=== PATIENT | female | born 1985 | race Caucasian/White ===

== ENCOUNTER 2017-01-14 22:22 | Emergency (ER) | payer MEDICAID ==
[~2017-01-14 22:22] MED LIST: ADVAIR 1001 DISK W/D IH; ADVAIR 25028 BLISTE1 PO; ADVIL200 MG PO; ALBUTEROL INH 0.3 ML AERO NEB; ALBUTEROL SULF8.5 G1 IH; ALBUTEROL SULF8.5 GM; ALBUTEROL SULF8.5 GM IH; ALBUTEROL0.83 MG/ML INH; ALBUTEROL17 GM INH; ALBUTEROL2.5 MG/0.1 IH; ALDACTONE25 M1 PO; ALEVE220 M1 PO; ALEVE220 M2 PO; AMBIEN; AMBIEN10 M1 PO; AMBIEN10 MG PO; AMBIEN5 M1 PO; AMBIEN5 MG; ANEXSIA 7.5/3251 TAB; ANTI-DIARRHEAL2 M1 PO; ATARAX25 MG PO; ATIVAN1 M2 PO; BACTRIM DS TAB1 EAC2 PO; BACTRIM DS TABL1 TAB; BACTRIM DS TABL1 TAB PO; BACTRIM DS1 TA1 PO; BACTRIM DS1 TAB PO; BENTYL20 MG PO; BIAXIN250 M3 PO; BLOOD PRESSURE MED; CARVEDILOL3.125 M1 PO; CEFDINIR300 MG PO; CEPACOL SORE T1 EACH MM; CLEOCIN HCL150 MG PO; CLEOCIN HCL300 MG PO; CLINDAMYCIN HC300 M2 PO; CLINDAMYCIN HC300 MG PO; COMBIVENT RESPIM4 G1 INH; COMPAZINE10 M PO; COREG3.125 M1 PO; CORTISPORIN EAR10 M LEFT EAR; CYCLOBENZAPRINE10 M1 PO; DORYX100 MG PO; DULCOLAX10 MG/SUPP RC; DULCOLAX5 MG PO; EFFEXOR100 MG; EFFEXOR75 MG; ERY-TAB250 MG PO; EXCEDRIN CAPLET1 TAB PO; FLAGYL500 MG PO; FLEXERIL 10MG PO; FLEXERIL10 MG PO; FLOMAX0.4 MG PO; FLUOXETINE HCL40 MG PO; FUROSEMIDE40 M2 PO; GABAPENTIN300 M1 PO; GLUCOPHAGE1000 M1 PO; H PO; HYDROCHLOROTHIA25 MG PO; HYDROCODON-ACE1 EAC7 PO; HYDROCODONE; IBUPROFEN800 MG PO; IPRAT-ALBUT 0.5-3 ML IH; IRON1 TA1 PO; KEFLEX500 MG; KEFLEX500 MG PO; LASIX20 M1 PO; LASIX40 M1 PO; LASIX80 M1 PO; LEVAQUIN750 M1 PO; LINDANE60 ML; LINDANE60 ML TP; LISINOPRIL10 MG PO; LISINOPRIL5 M1 PO; LORTAB 5/500 TA1 TAB PO; LORTAB 7.5/5001 EA PO; LORTAB 7.5/5001 TAB PO; LYRICA50 MG/CAP PO; MIRALAX17 G2 PO; MOTRIN200 MG/TA1 PO; MOTRIN600 MG PO; MUCINEX600 MG PO; NABUMETONE750 MG; NAPROSYN250 MG PO; NAPROXEN500 MG PO; NEURONTIN300 M1 PO; NEURONTIN600 M1 PO; NEXIUM20 M1 PO; NO MEDICATIONS; NO MEDS CURRENTLY; NORCO 5-325 TA1 EACH PO; NORCO 5/325 TAB1 TAB; NORCO 5/325 TAB1 TAB PO; NORCO 5/3251 TAB PO; OXYCODONE/APAP PO; PAXIL20 MG; PAXIL40 MG; PERCOCET 5-3251 EACH PO; PERCOCET 5/3251 TAB PO; PERCOCET 5MG/AP1 TA1 PO; PERCOCET 7.5/321 TA1 PO; PHENERGAN VC W120 ML; PHENERGAN VC W120 ML PO; PHENERGAN W/CO120 ML PO; PHENERGAN25 M1 PO; POTABA500 M1 PO; POTASSIUM PO; PREDNISONE10 MG PO; PREDNISONE20 M1 PO; PREDNISONE20 MG; PREDNISONE20 MG PO; PRENATAL1 EACH PO; PRILOSEC OTC20 MG PO; PRILOSEC40 MG; PROAIR HFA8.5 GM IH; PROCHLORPERAZINE5 MG PO; PROMETHAZINE V240 ML PO; PROMETHAZINE-C120 ML PO; PROMETRIUM200 MG; PROVENTIL HFA6.7 G1 IH; PROVENTIL HFA6.7 G1 INH; PROVENTIL0.83 MG/ML IH; PROVENTIL17 GM; PROVENTIL17 GM IH; PROZAC40 M1 PO; PROZAC40 MG PO; PYRIDIUM200 MG PO; ROBITUSSIN DM118 ML PO; ROBITUSSIN PED PO; ROBITUSSIN-DM120 ML; ROBITUSSIN-DM120 ML PO; ROBITUSSIN100 MG/5 M PO; ROBITUSSIN15 MG/5 M1 PO; SINGULAIR10 MG PO; SPIRIVA18 MCG IH; SPRINTEC1 TAB PO; SUBOXONE 8 MG-1 EAC2 SL; SURFAK240 M1 PO; TESSALON PERLE100 M1 PO; TESSALON PERLE100 MG PO; TRAMADOL HCL50 MG PO; TYLENOL W/CODEI1 TAB PO; TYLENOL325 MG PO; ULTRAM50 M1 PO; ULTRAM50 MG PO; URINARY PAIN RE95 MG; VENTOLIN HFA18 G1 IH; VIBRAMYCIN100 MG PO; VICODIN 5/500 T1 TAB PO; WELLBUTRIN SR150 MG; XANAX; XANAX0.25 MG; XANAX0.5 M1 PO; XANAX0.5 MG PO; XANAX1 M1 PO; XANAX1 MG; XANAX1 MG PO; ZITHROMAX; ZITHROMAX250 M1 PO; ZITHROMAX250MG Z-PAK; ZITHROMAX250MG Z-PAK PO; ZOFRAN ODT4 MG/UDTAB PO; ZOFRAN4 MG PO; [UNRECOGNIZED DRUG - MIXTURE] PO
[2017-01-14 22:38] LABS: URINE BILIRUBIN SMALL (NEG); URINE BLOOD MODERATE (NEG); URINE GLUCOSE (UA) NEGATIVE (NEG); URINE KETONE SMALL (NEG); URINE LEUKOCYTE ESTERASE POSITIVE (NEG); URINE NITRITE NEGATIVE (NEG); URINE PROTEIN LARGE (NEG); URINE SPECIFIC GRAVITY 1.025 (1.003-1.030)
[2017-01-14 22:39] LABS: URINE APPEARANCE HAZY; URINE COLOR YELLOW
[2017-01-14 22:45] LABS: URINE BACTERIA 1+; URINE MUCUS 1+
[2017-01-14] MEDS ORDERED: REXULTI1 MG PO (23:28)
[2017-01-15 00:08] LABS: BASO % 0.1 % (0-2); EOS % 1.7 % (0-7); EOSINOPHIL ABSOLUTE COUNT 0.3 tho/cmm (0.0-0.7); HCT-HEMATOCRIT 40.9 % (34.0-49.0); IMMATURE GRANULOCYTES PERCENT 0.6 % (0-0.3); LYMPH ABSOLUTE COUNT 3.9 tho/cmm (0.8-4.5); MCH (MEAN CORPUSCULAR HGB) 26.2 pg (28.0-32.0); MCHC MEAN CORPUSCULAR HGB CONC 31.8 % (32.0-36.0); MCV (MEAN CELL VOLUME) 82.3 fl (82.0-96.0); MEAN PLATELET VOLUME 10.3 cmc (9.4-12.4); MONOCYTE ABSOLUTE COUNT 1.5 tho/cmm (0.0-1.2); NEUTROPHIL ABSOLUTE COUNT 10.4 tho/cmm (1.6-8.0); NEUTROPHIL-AUTOMATED 10.4 tho/cmm (1.6-8.0); NEUTROPHILS % 64.6 % (40-80); PLATELET COUNT 390 tho/cmm (150-450); RED BLOOD COUNT 4.97 mil/cmm (4.00-5.20); RED CELL DISTRIBUTION WIDTH 16.2 % (12.4-16.4); WHITE BLOOD COUNT 16.1 tho/cmm (4.0-10.0)
[2017-01-15 00:50] LABS: ALB/GLOB RATIO 0.8 (0.8-2.0); ALBUMIN 3.6 g/dl (3.5-5.0); ALKALINE PHOSPHATASE 108 U/L (33-138); ALT/SGPT 45 U/L (12-78); AMYLASE 23 U/L (20-90); BILIRUBIN,TOTAL 0.4 mg/dl (0-1.5); BLOOD UREA NITROGEN 18 mg/dl (6-24); CALCIUM 8.8 mg/dl (8.5-10.5); CARBON DIOXIDE-VENOUS 25 mmol/L (22-32); CHLORIDE 103 mmol/l (96-110); CREATININE 0.83 mg/dl (0.50-1.10); GLUCOSE 102 mg/dL (70-110); LIPASE 114 U/L (73-393); SODIUM 138 mmol/L (135-145); eGFR VALUE FOR BLACK >90 mL/Min
[2017-01-15 00:51] LABS: ANION GAP 14 mmol/L (0-20); AST/SGOT 44 U/L (10-40)
[2017-01-15] MEDS ORDERED: CIPRO500 M2 PO (01:20)
[2017-05-09] MEDS ORDERED: XANAX1 M1 PO (17:11)
[2017-05-09] MEDS ORDERED: ZOFRAN4 M2 PO (18:17)
[2017-05-09] MEDS ORDERED: PAIN RELIEVER PO (18:17)
== END 2017-01-15 01:31 ==
LOC: EDMED 22:22
PROVIDERS: Emergency Medicine; Emergency Medicine Emergency Medical Services
DX: N39.0 Urinary tract infection, site not specified (principal); E11.9 Type 2 diabetes mellitus without complications; I10 Essential (primary) hypertension; F32.9 Major depressive disorder, single episode, unspecified; Z90.49 Acquired absence of other specified parts of digestive tract; Z98.890 Other specified postprocedural states; F17.200 Nicotine dependence, unspecified, uncomplicated; Z79.899 Other long term (current) drug therapy
CPT/HCPCS: J1885; J2405; J7030

== ENCOUNTER 2017-02-06 07:14 | Emergency (ER) | payer MEDICAID ==
[~2017-02-06 07:14] MED LIST changes: +CIPRO500 M2 PO; +REXULTI1 MG PO
[2017-02-06] MEDS ORDERED: [UNRECOGNIZED DRUG - OTHER] PO (07:23)
[2017-02-06 08:25] LABS: BASO % 0.1 % (0-2); EOS % 2.3 % (0-7); EOSINOPHIL ABSOLUTE COUNT 0.3 tho/cmm (0.0-0.7); HGB-HEMOGLOBIN 12.3 gm/dl (12.0-15.5); IMMATURE GRANULOCYTES ABSOLUTE 0.05 tho/cmm (0-0.03); IMMATURE GRANULOCYTES PERCENT 0.4 % (0-0.3); LYMPH % 23.2 % (20-45); LYMPH ABSOLUTE COUNT 3.3 tho/cmm (0.8-4.5); MCH (MEAN CORPUSCULAR HGB) 26.7 pg (28.0-32.0); MCHC MEAN CORPUSCULAR HGB CONC 32.4 % (32.0-36.0); MCV (MEAN CELL VOLUME) 82.6 fl (82.0-96.0); MEAN PLATELET VOLUME 10.2 cmc (9.4-12.4); MONO % 4.8 % (0-12); MONOCYTE ABSOLUTE COUNT 0.7 tho/cmm (0.0-1.2); NEUTROPHIL ABSOLUTE COUNT 9.8 tho/cmm (1.6-8.0); NEUTROPHIL-AUTOMATED 9.8 tho/cmm (1.6-8.0); NEUTROPHILS % 69.2 % (40-80); PLATELET COUNT 403 tho/cmm (150-450); RED CELL DISTRIBUTION WIDTH 15.7 % (12.4-16.4); WHITE BLOOD COUNT 14.2 tho/cmm (4.0-10.0)
[2017-02-06 08:38] LABS: PREGNANCY-SERUM NEGATIVE (NEGATIVE)
[2017-02-06 09:05] LABS: ALB/GLOB RATIO 0.8 (0.8-2.0); ALBUMIN 3.2 g/dl (3.5-5.0); ALKALINE PHOSPHATASE 114 U/L (33-138); ALT/SGPT 51 U/L (12-78); BILIRUBIN,TOTAL 0.2 mg/dl (0-1.5); BLOOD UREA NITROGEN 9 mg/dl (6-24); CALCIUM 8.5 mg/dl (8.5-10.5); CARBON DIOXIDE-VENOUS 24 mmol/L (22-32); CHLORIDE 107 mmol/l (96-110); CREATININE 0.68 mg/dl (0.50-1.10); GLUCOSE 204 mg/dL (70-110); SODIUM 139 mmol/L (135-145); eGFR VALUE FOR BLACK >90 mL/Min
[2017-02-06 09:11] LABS: ANION GAP 12 mmol/L (0-20); AST/SGOT 38 U/L (10-40); POTASSIUM 3.9 mmol/L (3.7-5.1)
[2017-02-06 09:29] LABS: URINE BILIRUBIN NEGATIVE (NEG); URINE BLOOD SMALL (NEG); URINE GLUCOSE (UA) NEGATIVE (NEG); URINE KETONE NEGATIVE (NEG); URINE LEUKOCYTE ESTERASE NEGATIVE (NEG); URINE NITRITE NEGATIVE (NEG); URINE PROTEIN MODERATE (NEG); URINE SPECIFIC GRAVITY 1.025 (1.003-1.030)
[2017-02-06 09:31] LABS: URINE APPEARANCE CLEAR; URINE COLOR YELLOW
[2017-02-06 09:41] LABS: URINE MUCUS 1+
[2017-05-09] MEDS ORDERED: XANAX1 M1 PO (17:11)
[2017-05-09] MEDS ORDERED: ZOFRAN4 M2 PO (18:17)
[2017-05-09] MEDS ORDERED: PAIN RELIEVER PO (18:17)
== END 2017-02-06 10:34 ==
LOC: EDMED 07:14
PROVIDERS: Emergency Medicine
DX: R09.1 Pleurisy (principal); J44.9 Chronic obstructive pulmonary disease, unspecified; F17.200 Nicotine dependence, unspecified, uncomplicated; I50.9 Heart failure, unspecified; F32.9 Major depressive disorder, single episode, unspecified; Z88.0 Allergy status to penicillin
CPT/HCPCS: J1170; J1885; J2405

== ENCOUNTER 2017-02-14 06:07 | Emergency (ER) | payer MEDICAID ==
[~2017-02-14 06:07] MED LIST changes: +[UNRECOGNIZED DRUG - OTHER] PO
[2017-02-14 06:48] LABS: BASO % 0.3 % (0-2); EOS % 2.1 % (0-7); EOSINOPHIL ABSOLUTE COUNT 0.3 tho/cmm (0.0-0.7); HCT-HEMATOCRIT 39.4 % (34.0-49.0); HGB-HEMOGLOBIN 12.7 gm/dl (12.0-15.5); IMMATURE GRANULOCYTES ABSOLUTE 0.05 tho/cmm (0-0.03); IMMATURE GRANULOCYTES PERCENT 0.3 % (0-0.3); LYMPH % 26.4 % (20-45); LYMPH ABSOLUTE COUNT 4.1 tho/cmm (0.8-4.5); MCH (MEAN CORPUSCULAR HGB) 26.5 pg (28.0-32.0); MCHC MEAN CORPUSCULAR HGB CONC 32.2 % (32.0-36.0); MCV (MEAN CELL VOLUME) 82.3 fl (82.0-96.0); MEAN PLATELET VOLUME 10.2 cmc (9.4-12.4); MONO % 5.8 % (0-12); MONOCYTE ABSOLUTE COUNT 0.9 tho/cmm (0.0-1.2); NEUTROPHILS % 65.1 % (40-80); PLATELET COUNT 378 tho/cmm (150-450); RED BLOOD COUNT 4.79 mil/cmm (4.00-5.20); RED CELL DISTRIBUTION WIDTH 15.8 % (12.4-16.4); WHITE BLOOD COUNT 15.4 tho/cmm (4.0-10.0)
[2017-02-14 07:05] LABS: PREGNANCY-SERUM NEGATIVE (NEGATIVE)
[2017-02-14 07:16] LABS: ANION GAP 13 mmol/L (0-20); BLOOD UREA NITROGEN 11 mg/dl (6-24); CALCIUM 8.6 mg/dl (8.5-10.5); CARBON DIOXIDE-VENOUS 23 mmol/L (22-32); CHLORIDE 105 mmol/l (96-110); CREATININE 0.71 mg/dl (0.50-1.10); GLUCOSE 202 mg/dL (70-110); MAGNESIUM 1.8 mg/dl (1.8-2.6); POTASSIUM 3.9 mmol/L (3.7-5.1); SODIUM 137 mmol/L (135-145); eGFR VALUE FOR BLACK >90 mL/Min
[2017-05-09] MEDS ORDERED: XANAX1 M1 PO (17:11)
[2017-05-09] MEDS ORDERED: ZOFRAN4 M2 PO (18:17)
[2017-05-09] MEDS ORDERED: PAIN RELIEVER PO (18:17)
== END 2017-02-14 08:12 ==
LOC: EDMED 06:07
PROVIDERS: Emergency Medicine
DX: R07.9 Chest pain, unspecified (principal); E11.65 Type 2 diabetes mellitus with hyperglycemia; I11.0 Hypertensive heart disease with heart failure; Z90.710 Acquired absence of both cervix and uterus; Z98.890 Other specified postprocedural states; Z79.899 Other long term (current) drug therapy; F17.200 Nicotine dependence, unspecified, uncomplicated
CPT/HCPCS: J1170; J1885; J2405; Q9967

== ENCOUNTER 2017-03-02 18:38 | Emergency (ER) | payer MEDICAID ==
[2017-03-02] MEDS ORDERED: BACTRIM DS TAB1 EAC2 PO (19:53)
[2017-05-09] MEDS ORDERED: XANAX1 M1 PO (17:11)
[2017-05-09] MEDS ORDERED: PAIN RELIEVER PO (18:17)
[2017-05-09] MEDS ORDERED: ZOFRAN4 M2 PO (18:17)
== END 2017-03-02 20:51 ==
LOC: EDMED 18:38
PROC: 0H9UXZZ (ICD-10-PCS; principal; 2017-03-02)
DX: N61.1 Abscess of the breast and nipple (principal); E11.9 Type 2 diabetes mellitus without complications; I10 Essential (primary) hypertension; F17.200 Nicotine dependence, unspecified, uncomplicated

== ENCOUNTER 2017-03-11 14:51 | Emergency (ER) | payer MEDICAID ==
[2017-03-11] MEDS ORDERED: NYSTOP60 GM TOP (15:10)
[2017-03-11] MEDS ORDERED: BACTRIM DS TAB1 EAC2 PO ×2 (15:11→18:24)
[2017-03-11] MEDS ORDERED: PROTONIX40 M2 PO (15:11)
[2017-03-11] MEDS ORDERED: ZOFRAN ODT8 MG PO (15:12)
[2017-03-11 16:43] LABS: URINE BILIRUBIN NEGATIVE (NEG); URINE BLOOD MODERATE (NEG); URINE GLUCOSE (UA) NEGATIVE (NEG); URINE KETONE NEGATIVE (NEG); URINE LEUKOCYTE ESTERASE POSITIVE (NEG); URINE NITRITE NEGATIVE (NEG); URINE PROTEIN MODERATE (NEG); URINE SPECIFIC GRAVITY 1.025 (1.003-1.030)
[2017-03-11 16:45] LABS: URINE APPEARANCE HAZY; URINE COLOR YELLOW
[2017-03-11 16:59] LABS: BASO % 0.2 % (0-2); EOSINOPHIL ABSOLUTE COUNT 0.4 tho/cmm (0.0-0.7); HCT-HEMATOCRIT 34.1 % (34.0-49.0); HGB-HEMOGLOBIN 10.7 gm/dl (12.0-15.5); IMMATURE GRANULOCYTES ABSOLUTE 0.03 tho/cmm (0-0.03); IMMATURE GRANULOCYTES PERCENT 0.2 % (0-0.3); LYMPH % 31.6 % (20-45); LYMPH ABSOLUTE COUNT 3.9 tho/cmm (0.8-4.5); MCH (MEAN CORPUSCULAR HGB) 26.9 pg (28.0-32.0); MCHC MEAN CORPUSCULAR HGB CONC 31.4 % (32.0-36.0); MCV (MEAN CELL VOLUME) 85.7 fl (82.0-96.0); MONO % 7.9 % (0-12); NEUTROPHIL ABSOLUTE COUNT 7.1 tho/cmm (1.6-8.0); NEUTROPHIL-AUTOMATED 7.1 tho/cmm (1.6-8.0); NEUTROPHILS % 57.1 % (40-80); PLATELET COUNT 319 tho/cmm (150-450); RED BLOOD COUNT 3.98 mil/cmm (4.00-5.20); RED CELL DISTRIBUTION WIDTH 16.3 % (12.4-16.4); WHITE BLOOD COUNT 12.4 tho/cmm (4.0-10.0)
[2017-03-11 17:09] LABS: URINE MUCUS 3+
[2017-03-11 17:13] LABS: PREGNANCY-SERUM NEGATIVE (NEGATIVE)
[2017-03-11 17:52] LABS: ANION GAP 12 mmol/L (0-20); BLOOD UREA NITROGEN 9 mg/dl (6-24); CALCIUM 8.4 mg/dl (8.5-10.5); CARBON DIOXIDE-VENOUS 24 mmol/L (22-32); CHLORIDE 107 mmol/l (96-110); CREATININE 0.69 mg/dl (0.50-1.10); GLUCOSE 123 mg/dL (70-110); POTASSIUM 4.2 mmol/L (3.7-5.1); SODIUM 139 mmol/L (135-145); eGFR VALUE FOR BLACK >90 mL/Min
[2017-03-11] MEDS ORDERED: PERCOCET 5-3251 EACH PO (18:24)
[2017-03-11] MEDS ORDERED: MIRALAX17 G2 PO (18:24)
[2017-03-11] MEDS ORDERED: CLEOCIN HCL150 M1 PO (18:24)
[2017-03-11] MEDS ORDERED: DIFLUCAN150 M1 PO (18:26)
[2017-03-11] MEDS ORDERED: NYSTATIN100000 UNI SSW (18:26)
[2017-05-09] MEDS ORDERED: XANAX1 M1 PO (17:11)
[2017-05-09] MEDS ORDERED: PAIN RELIEVER PO (18:17)
[2017-05-09] MEDS ORDERED: ZOFRAN4 M2 PO (18:17)
== END 2017-03-11 18:57 ==
LOC: EDMED 14:51
PROVIDERS: Emergency Medicine
DX: B37.49 Other urogenital candidiasis (principal); L03.90 Cellulitis, unspecified; I50.9 Heart failure, unspecified; E11.9 Type 2 diabetes mellitus without complications; J44.9 Chronic obstructive pulmonary disease, unspecified; F41.9 Anxiety disorder, unspecified; E66.9 Obesity, unspecified; Z88.0 Allergy status to penicillin; F17.200 Nicotine dependence, unspecified, uncomplicated; Z90.49 Acquired absence of other specified parts of digestive tract; Z98.890 Other specified postprocedural states; Z79.899 Other long term (current) drug therapy
CPT/HCPCS: P9612

== ENCOUNTER 2017-03-12 08:22 | Emergency (ER) | payer MEDICAID ==
[~2017-03-12 08:22] MED LIST changes: +CLEOCIN HCL150 M1 PO; +DIFLUCAN150 M1 PO; +NYSTATIN100000 UNI SSW; +NYSTOP60 GM TOP; +PROTONIX40 M2 PO; +ZOFRAN ODT8 MG PO
[2017-03-12 09:52] LABS: BASO % 0.2 % (0-2); EOS % 3.1 % (0-7); EOSINOPHIL ABSOLUTE COUNT 0.4 tho/cmm (0.0-0.7); HCT-HEMATOCRIT 32.2 % (34.0-49.0); HGB-HEMOGLOBIN 10.2 gm/dl (12.0-15.5); IMMATURE GRANULOCYTES ABSOLUTE 0.04 tho/cmm (0-0.03); IMMATURE GRANULOCYTES PERCENT 0.3 % (0-0.3); LYMPH % 26.4 % (20-45); LYMPH ABSOLUTE COUNT 3.7 tho/cmm (0.8-4.5); MCH (MEAN CORPUSCULAR HGB) 27.1 pg (28.0-32.0); MCHC MEAN CORPUSCULAR HGB CONC 31.7 % (32.0-36.0); MCV (MEAN CELL VOLUME) 85.4 fl (82.0-96.0); MEAN PLATELET VOLUME 10.1 cmc (9.4-12.4); MONO % 7.1 % (0-12); NEUTROPHIL ABSOLUTE COUNT 8.7 tho/cmm (1.6-8.0); NEUTROPHIL-AUTOMATED 8.7 tho/cmm (1.6-8.0); NEUTROPHILS % 62.9 % (40-80); PLATELET COUNT 329 tho/cmm (150-450); RED BLOOD COUNT 3.77 mil/cmm (4.00-5.20); RED CELL DISTRIBUTION WIDTH 16.3 % (12.4-16.4); WHITE BLOOD COUNT 13.8 tho/cmm (4.0-10.0)
[2017-03-12 10:11] LABS: ALB/GLOB RATIO 0.8 (0.8-2.0); ALBUMIN 3.5 g/dl (3.5-5.0); ALKALINE PHOSPHATASE 102 U/L (33-138); ALT/SGPT 57 U/L (12-78); ANION GAP 11 mmol/L (0-20); AST/SGOT 43 U/L (10-40); BILIRUBIN,TOTAL 0.4 mg/dl (0-1.5); BLOOD UREA NITROGEN 8 mg/dl (6-24); CALCIUM 8.5 mg/dl (8.5-10.5); CARBON DIOXIDE-VENOUS 26 mmol/L (22-32); CHLORIDE 106 mmol/l (96-110); CREATININE 0.57 mg/dl (0.50-1.10); GLUCOSE 113 mg/dL (70-110); POTASSIUM 3.8 mmol/L (3.7-5.1); SODIUM 139 mmol/L (135-145); eGFR VALUE FOR BLACK >90 mL/Min
[2017-03-12 10:32] LABS: PROCALCITONIN <0.05 ng/ml (0.05-0.09)
[2017-05-09] MEDS ORDERED: XANAX1 M1 PO (17:11)
[2017-05-09] MEDS ORDERED: PAIN RELIEVER PO (18:17)
[2017-05-09] MEDS ORDERED: ZOFRAN4 M2 PO (18:17)
== END 2017-03-12 10:31 | disposition left against medical advice (07) ==
LOC: EDMED 08:22
PROVIDERS: Emergency Medicine
DX: R06.02 Shortness of breath (principal); Z53.20 Procedure and treatment not carried out because of patient's decision for unspecified reasons; I50.9 Heart failure, unspecified; I11.0 Hypertensive heart disease with heart failure; E11.9 Type 2 diabetes mellitus without complications; J44.9 Chronic obstructive pulmonary disease, unspecified; K21.9 Gastro-esophageal reflux disease without esophagitis; Z88.0 Allergy status to penicillin; Z88.6 Allergy status to analgesic agent; Z79.899 Other long term (current) drug therapy

== ENCOUNTER 2017-03-26 19:08 | Inpatient (IN) | payer MEDICAID ==
[2017-03-26 19:40] LABS: BASO % 0.3 % (0-2); EOS % 3.2 % (0-7); EOSINOPHIL ABSOLUTE COUNT 0.4 tho/cmm (0.0-0.7); HCT-HEMATOCRIT 34.1 % (34.0-49.0); HGB-HEMOGLOBIN 10.7 gm/dl (12.0-15.5); IMMATURE GRANULOCYTES ABSOLUTE 0.04 tho/cmm (0-0.03); IMMATURE GRANULOCYTES PERCENT 0.3 % (0-0.3); LYMPH % 23.7 % (20-45); LYMPH ABSOLUTE COUNT 2.7 tho/cmm (0.8-4.5); MCH (MEAN CORPUSCULAR HGB) 27.1 pg (28.0-32.0); MCHC MEAN CORPUSCULAR HGB CONC 31.4 % (32.0-36.0); MCV (MEAN CELL VOLUME) 86.3 fl (82.0-96.0); MEAN PLATELET VOLUME 10.3 cmc (9.4-12.4); MONO % 6.9 % (0-12); MONOCYTE ABSOLUTE COUNT 0.8 tho/cmm (0.0-1.2); NEUTROPHIL ABSOLUTE COUNT 7.6 tho/cmm (1.6-8.0); NEUTROPHIL-AUTOMATED 7.6 tho/cmm (1.6-8.0); NEUTROPHILS % 65.6 % (40-80); PLATELET COUNT 387 tho/cmm (150-450); RED BLOOD COUNT 3.95 mil/cmm (4.00-5.20); WHITE BLOOD COUNT 11.5 tho/cmm (4.0-10.0)
[2017-03-26 20:00] LABS: ALB/GLOB RATIO 0.8 (0.8-2.0); ALBUMIN 3.3 g/dl (3.5-5.0); ALKALINE PHOSPHATASE 106 U/L (33-138); ALT/SGPT 57 U/L (12-78); BILIRUBIN,TOTAL 0.6 mg/dl (0-1.5); BLOOD UREA NITROGEN 7 mg/dl (6-24); CALCIUM 8.4 mg/dl (8.5-10.5); CARBON DIOXIDE-VENOUS 28 mmol/L (22-32); CHLORIDE 108 mmol/l (96-110); CREATININE 0.68 mg/dl (0.50-1.10); GLUCOSE 114 mg/dL (70-110); SODIUM 142 mmol/L (135-145); eGFR VALUE FOR BLACK >90 mL/Min
[2017-03-26 20:20] LABS: ANION GAP 11 mmol/L (0-20); AST/SGOT 60 U/L (10-40); POTASSIUM 4.8 mmol/L (3.7-5.1)
[2017-03-26] MEDS ORDERED: XANAX1 M1 PO (22:06)
[2017-03-26] MEDS ORDERED: MIRALAX17 G2 PO (22:07)
[2017-03-26] MEDS ORDERED: VENTOLIN HFA18 G2 PO (22:09)
[2017-03-26] MEDS ORDERED: COMBIVENT RESPIM4 G1 INH (22:09)
[2017-03-26 23:48] LABS: C-REACTIVE PROTEIN 4.8 mg/dl (0-0.9); MAGNESIUM 1.7 mg/dl (1.8-2.6)
[2017-03-27 00:12] LABS: TSH-THYROID STIMULATING HORM. 2.99 uIU/ml (0.40-3.80)
[2017-03-27 03:31] LABS: BASO % 0.2 % (0-2); EOS % 3.2 % (0-7); EOSINOPHIL ABSOLUTE COUNT 0.4 tho/cmm (0.0-0.7); HGB-HEMOGLOBIN 10.3 gm/dl (12.0-15.5); IMMATURE GRANULOCYTES ABSOLUTE 0.05 tho/cmm (0-0.03); IMMATURE GRANULOCYTES PERCENT 0.4 % (0-0.3); LYMPH % 21.8 % (20-45); LYMPH ABSOLUTE COUNT 2.7 tho/cmm (0.8-4.5); MCHC MEAN CORPUSCULAR HGB CONC 31.2 % (32.0-36.0); MCV (MEAN CELL VOLUME) 86.6 fl (82.0-96.0); MEAN PLATELET VOLUME 10.1 cmc (9.4-12.4); MONO % 6.3 % (0-12); MONOCYTE ABSOLUTE COUNT 0.8 tho/cmm (0.0-1.2); NEUTROPHIL ABSOLUTE COUNT 8.6 tho/cmm (1.6-8.0); NEUTROPHIL-AUTOMATED 8.6 tho/cmm (1.6-8.0); NEUTROPHILS % 68.1 % (40-80); PLATELET COUNT 412 tho/cmm (150-450); RED BLOOD COUNT 3.81 mil/cmm (4.00-5.20); WHITE BLOOD COUNT 12.5 tho/cmm (4.0-10.0)
[2017-03-27 03:37] LABS: ANION GAP 11 mmol/L (0-20); BLOOD UREA NITROGEN 7 mg/dl (6-24); CALCIUM 8.3 mg/dl (8.5-10.5); CARBON DIOXIDE-VENOUS 30 mmol/L (22-32); CHLORIDE 103 mmol/l (96-110); GLUCOSE 136 mg/dL (70-110); SODIUM 141 mmol/L (135-145); eGFR VALUE FOR BLACK >90 mL/Min
[2017-03-27 03:45] LABS: POTASSIUM 3.4 mmol/L (3.7-5.1)
--- NOTE | 2017-03-27 21:00 | NUR ---
VIRTUAL CARE NOTE: ASSESSMENT DEFERRED. PT. SLEEPING.
[2017-03-28 04:49] LABS: ANION GAP 12 mmol/L (0-20); BLOOD UREA NITROGEN 11 mg/dl (6-24); CALCIUM 9.1 mg/dl (8.5-10.5); CARBON DIOXIDE-VENOUS 31 mmol/L (22-32); CHLORIDE 100 mmol/l (96-110); CREATININE 0.76 mg/dl (0.50-1.10); GLUCOSE 129 mg/dL (70-110); POTASSIUM 3.7 mmol/L (3.7-5.1); SODIUM 139 mmol/L (135-145); eGFR VALUE FOR BLACK >90 mL/Min
--- NOTE | 2017-03-28 14:46 | NUR ---
VIRTUAL CARE NOTE: PT ASLEEP AT THIS TIME, ROUND DEFERRED
[2017-03-29 05:34] LABS: HGB-HEMOGLOBIN 10.7 gm/dl (12.0-15.5); PLATELET COUNT 424 tho/cmm (150-450)
[2017-03-29 05:52] LABS: ANION GAP 11 mmol/L (0-20); BLOOD UREA NITROGEN 10 mg/dl (6-24); CALCIUM 8.7 mg/dl (8.5-10.5); CARBON DIOXIDE-VENOUS 32 mmol/L (22-32); CHLORIDE 101 mmol/l (96-110); CREATININE 0.77 mg/dl (0.50-1.10); GLUCOSE 143 mg/dL (70-110); POTASSIUM 3.6 mmol/L (3.7-5.1); SODIUM 140 mmol/L (135-145); eGFR VALUE FOR BLACK >90 mL/Min
--- NOTE | 2017-03-29 21:48 | NUR ---
VIRUTAL CARE NOTE: ASSESSMENT DEFERRED. PT EITHER ON PHONE, NOT IN ROOM, OR SLEEPING. WILL CONTINUE WITH CHART REVIEW.
[2017-03-30 05:33] LABS: ANION GAP 12 mmol/L (0-20); BLOOD UREA NITROGEN 12 mg/dl (6-24); CALCIUM 8.9 mg/dl (8.5-10.5); CARBON DIOXIDE-VENOUS 29 mmol/L (22-32); CHLORIDE 101 mmol/l (96-110); CREATININE 0.72 mg/dl (0.50-1.10); GLUCOSE 130 mg/dL (70-110); SODIUM 138 mmol/L (135-145); eGFR VALUE FOR BLACK >90 mL/Min
[2017-03-30 05:42] LABS: POTASSIUM 4.2 mmol/L (3.7-5.1)
[2017-03-31 05:23] LABS: PLATELET COUNT 485 tho/cmm (150-450)
[2017-03-31 11:47] LABS: ALB/GLOB RATIO 0.7 (0.8-2.0); ALBUMIN 3.7 g/dl (3.5-5.0); ALKALINE PHOSPHATASE 109 U/L (33-138); ALT/SGPT 43 U/L (12-78); ANION GAP 10 mmol/L (0-20); AST/SGOT 24 U/L (10-40); BILIRUBIN,TOTAL 0.3 mg/dl (0-1.5); BLOOD UREA NITROGEN 14 mg/dl (6-24); CALCIUM 9.7 mg/dl (8.5-10.5); CARBON DIOXIDE-VENOUS 38 mmol/L (22-32); CHLORIDE 90 mmol/l (96-110); CREATININE 0.88 mg/dl (0.50-1.10); GLUCOSE 120 mg/dL (70-110); POTASSIUM 3.7 mmol/L (3.7-5.1); SODIUM 134 mmol/L (135-145); eGFR VALUE FOR BLACK >90 mL/Min
[2017-03-31] MEDS ORDERED: DEMADEX20 M1 PO (14:59)
[2017-03-31] MEDS ORDERED: POTASSIUM CHLO20 ME3 PO (15:00)
[2017-03-31] MEDS ORDERED: ALDACTONE25 M1 PO (15:00)
[2017-05-09] MEDS ORDERED: XANAX1 M1 PO (17:11)
[2017-05-09] MEDS ORDERED: ZOFRAN4 M2 PO (18:17)
[2017-05-09] MEDS ORDERED: PAIN RELIEVER PO (18:17)
== END 2017-03-31 15:50 | disposition left against medical advice (07) | DRG 292 ==
LOC: EDMED 19:08 → EMR2 22:25 → PCUA 23:45 → 5WD 03-27 17:40 → PCUB 03-31 11:37
PROVIDERS: Emergency Medicine; Internal Medicine; Internal Medicine Cardiovascular Disease; Registered Nurse; ADMIT Hospitalist
PROC: 5A09357 Assistance with Respiratory Ventilation, Less than 24 Consecutive Hours, Continuous Positive Airway Pressure (ICD-10-PCS; principal; 2017-03-27)
DX: I11.0 Hypertensive heart disease with heart failure (principal); E66.2 Morbid (severe) obesity with alveolar hypoventilation; I27.2 Other secondary pulmonary hypertension; E11.42 Type 2 diabetes mellitus with diabetic polyneuropathy; F11.20 Opioid dependence, uncomplicated; Z68.43 Body mass index [BMI] 50.0-59.9, adult; I50.33 Acute on chronic diastolic (congestive) heart failure; E66.01 Morbid (severe) obesity due to excess calories; Z91.19 Patient's noncompliance with other medical treatment and regimen; G89.29 Other chronic pain; Z79.84 Long term (current) use of oral hypoglycemic drugs; F41.9 Anxiety disorder, unspecified; J44.9 Chronic obstructive pulmonary disease, unspecified; F17.210 Nicotine dependence, cigarettes, uncomplicated; Z88.0 Allergy status to penicillin; Z88.8 Allergy status to other drugs, medicaments and biological substances; Z79.02 Long term (current) use of antithrombotics/antiplatelets; F32.9 Major depressive disorder, single episode, unspecified; B37.3 Candidiasis of vulva and vagina; G47.33 Obstructive sleep apnea (adult) (pediatric)
CPT/HCPCS: C8924; J1170; J1650; J1940; J2405

== ENCOUNTER 2017-04-11 15:11 | Inpatient (IN) | payer MEDICAID, OTHER ==
[~2017-04-11 15:11] MED LIST changes: +DEMADEX20 M1 PO; +POTASSIUM CHLO20 ME3 PO; +VENTOLIN HFA18 G2 PO
[2017-04-11] MEDS ORDERED: ADVAIR 25028 BLISTE1 INH (17:05)
[2017-04-11 17:33] LABS: BASO % 0.2 % (0-2); EOS % 3.4 % (0-7); EOSINOPHIL ABSOLUTE COUNT 0.4 tho/cmm (0.0-0.7); HCT-HEMATOCRIT 34.7 % (34.0-49.0); HGB-HEMOGLOBIN 10.6 gm/dl (12.0-15.5); IMMATURE GRANULOCYTES ABSOLUTE 0.06 tho/cmm (0-0.03); IMMATURE GRANULOCYTES PERCENT 0.5 % (0-0.3); LYMPH % 25.8 % (20-45); LYMPH ABSOLUTE COUNT 3.2 tho/cmm (0.8-4.5); MCH (MEAN CORPUSCULAR HGB) 26.4 pg (28.0-32.0); MCHC MEAN CORPUSCULAR HGB CONC 30.5 % (32.0-36.0); MCV (MEAN CELL VOLUME) 86.5 fl (82.0-96.0); MONOCYTE ABSOLUTE COUNT 0.8 tho/cmm (0.0-1.2); NEUTROPHILS % 64.1 % (40-80); PLATELET COUNT 400 tho/cmm (150-450); RED BLOOD COUNT 4.01 mil/cmm (4.00-5.20); RED CELL DISTRIBUTION WIDTH 16.4 % (12.4-16.4); WHITE BLOOD COUNT 12.4 tho/cmm (4.0-10.0)
[2017-04-11 17:47] LABS: ALB/GLOB RATIO 0.8 (0.8-2.0); ALBUMIN 3.3 g/dl (3.5-5.0); ALKALINE PHOSPHATASE 99 U/L (33-138); ALT/SGPT 33 U/L (12-78); ANION GAP 10 mmol/L (0-20); AST/SGOT 33 U/L (10-40); BILIRUBIN,TOTAL 0.3 mg/dl (0-1.5); BLOOD UREA NITROGEN 6 mg/dl (6-24); CALCIUM 8.8 mg/dl (8.5-10.5); CARBON DIOXIDE-VENOUS 29 mmol/L (22-32); CHLORIDE 105 mmol/l (96-110); CREATININE 0.67 mg/dl (0.50-1.10); GLUCOSE 85 mg/dL (70-110); MAGNESIUM 1.8 mg/dl (1.8-2.6); POTASSIUM 4.4 mmol/L (3.7-5.1); SODIUM 140 mmol/L (135-145); eGFR VALUE FOR BLACK >90 mL/Min
[2017-04-12 06:31] LABS: ANION GAP 11 mmol/L (0-20); BLOOD UREA NITROGEN 7 mg/dl (6-24); CALCIUM 9.1 mg/dl (8.5-10.5); CARBON DIOXIDE-VENOUS 29 mmol/L (22-32); CHLORIDE 101 mmol/l (96-110); CREATININE 0.74 mg/dl (0.50-1.10); GLUCOSE 105 mg/dL (70-110); POTASSIUM 3.8 mmol/L (3.7-5.1); SODIUM 137 mmol/L (135-145); eGFR VALUE FOR BLACK >90 mL/Min
[2017-04-13 07:48] LABS: ANION GAP 10 mmol/L (0-20); BLOOD UREA NITROGEN 10 mg/dl (6-24); CALCIUM 8.7 mg/dl (8.5-10.5); CARBON DIOXIDE-VENOUS 33 mmol/L (22-32); CHLORIDE 100 mmol/l (96-110); CREATININE 0.71 mg/dl (0.50-1.10); GLUCOSE 136 mg/dL (70-110); SODIUM 139 mmol/L (135-145); eGFR VALUE FOR BLACK >90 mL/Min
[2017-04-13 07:50] LABS: POTASSIUM 4.4 mmol/L (3.7-5.1)
[2017-04-14 06:39] LABS: PLATELET COUNT 425 tho/cmm (150-450)
[2017-04-14 06:44] LABS: ANION GAP 8 mmol/L (0-20); BLOOD UREA NITROGEN 13 mg/dl (6-24); CARBON DIOXIDE-VENOUS 34 mmol/L (22-32); CHLORIDE 97 mmol/l (96-110); CREATININE 0.81 mg/dl (0.50-1.10); GLUCOSE 105 mg/dL (70-110); POTASSIUM 3.8 mmol/L (3.7-5.1); SODIUM 135 mmol/L (135-145); eGFR VALUE FOR BLACK >90 mL/Min
[2017-04-14] MEDS ORDERED: POTASSIUM CHLO20 ME3 PO (09:33)
[2017-04-14] MEDS ORDERED: DEMADEX20 M1 PO (09:33)
[2017-04-14] MEDS ORDERED: BACITRACIN-P28.35 GM TOP (09:39)
[2017-04-14] MEDS ORDERED: COREG6.25 M1 PO (09:45)
[2017-05-09] MEDS ORDERED: XANAX1 M1 PO (17:11)
[2017-05-09] MEDS ORDERED: ZOFRAN4 M2 PO (18:17)
[2017-05-09] MEDS ORDERED: PAIN RELIEVER PO (18:17)
== END 2017-04-14 15:29 | DRG 292 ==
LOC: PCUA 15:11
PROVIDERS: Hospitalist; Nurse Practitioner Family; ADMIT Family Medicine
PROC: 05H633Z Insertion of Infusion Device into Left Subclavian Vein, Percutaneous Approach (ICD-10-PCS; principal; 2017-04-11)
PROC: 5A09357 Assistance with Respiratory Ventilation, Less than 24 Consecutive Hours, Continuous Positive Airway Pressure (ICD-10-PCS; 2017-04-11)
DX: I11.0 Hypertensive heart disease with heart failure (principal); Z68.43 Body mass index [BMI] 50.0-59.9, adult; I50.33 Acute on chronic diastolic (congestive) heart failure; E88.09 Other disorders of plasma-protein metabolism, not elsewhere classified; E11.9 Type 2 diabetes mellitus without complications; L98.499 Non-pressure chronic ulcer of skin of other sites with unspecified severity; L30.9 Dermatitis, unspecified; J44.9 Chronic obstructive pulmonary disease, unspecified; F17.220 Nicotine dependence, chewing tobacco, uncomplicated; E66.01 Morbid (severe) obesity due to excess calories; Z79.02 Long term (current) use of antithrombotics/antiplatelets; Z79.84 Long term (current) use of oral hypoglycemic drugs; Z88.0 Allergy status to penicillin; Z88.8 Allergy status to other drugs, medicaments and biological substances; Z91.19 Patient's noncompliance with other medical treatment and regimen; G47.33 Obstructive sleep apnea (adult) (pediatric); F41.9 Anxiety disorder, unspecified; R00.0 Tachycardia, unspecified; E83.51 Hypocalcemia; R51 Headache; R60.0 Localized edema; G89.29 Other chronic pain; M54.9 Dorsalgia, unspecified
CPT/HCPCS: C1751; J1650; J1815; J1940

== ENCOUNTER 2017-07-11 20:10 | Emergency (ER) | payer MEDICAID ==
[~2017-07-11] VITALS: Ht 165.1 cm; Wt 153.1 kg
[~2017-07-11 20:10] MED LIST changes: +ADVAIR 25028 BLISTE1 INH; +BACITRACIN-P28.35 GM TOP; +COREG6.25 M1 PO; +PAIN RELIEVER PO; +ZOFRAN4 M2 PO
[2017-07-11] MEDS ORDERED: REXULTI4 MG PO (20:24)
[2017-07-11 20:47] LABS: URINE BILIRUBIN NEGATIVE (NEG); URINE BLOOD NEGATIVE (NEG); URINE GLUCOSE (UA) NEGATIVE (NEG); URINE KETONE SMALL (NEG); URINE LEUKOCYTE ESTERASE POSITIVE (NEG); URINE NITRITE NEGATIVE (NEG); URINE PROTEIN MODERATE (NEG)
[2017-07-11 20:49] LABS: URINE APPEARANCE CLOUDY; URINE COLOR YELLOW
[2017-07-11 20:53] LABS: URINE MUCUS 2+
[2017-07-11 20:54] LABS: URINE BACTERIA 2+; URINE RBC 0 /[HPF] (0-5); URINE WBC 0-2 /[HPF] (0-5)
[2017-07-11 21:08] LABS: BASO % 0.2 % (0-2); EOS % 5.4 % (0-7); HCT-HEMATOCRIT 40.6 % (34.0-49.0); HGB-HEMOGLOBIN 12.6 gm/dl (12.0-15.5); IMMATURE GRANULOCYTES ABSOLUTE 0.13 tho/cmm (0-0.03); IMMATURE GRANULOCYTES PERCENT 0.7 % (0-0.3); LYMPH % 14.5 % (20-45); LYMPH ABSOLUTE COUNT 2.7 tho/cmm (0.8-4.5); MCH (MEAN CORPUSCULAR HGB) 25.7 pg (28.0-32.0); MCV (MEAN CELL VOLUME) 82.9 fl (82.0-96.0); MONO % 6.8 % (0-12); MONOCYTE ABSOLUTE COUNT 1.3 tho/cmm (0.0-1.2); NEUTROPHIL ABSOLUTE COUNT 13.4 tho/cmm (1.6-8.0); NEUTROPHIL-AUTOMATED 13.4 tho/cmm (1.6-8.0); NEUTROPHILS % 72.4 % (40-80); PLATELET COUNT 427 tho/cmm (150-450); WHITE BLOOD COUNT 18.4 tho/cmm (4.0-10.0)
[2017-07-11 21:18] LABS: PREGNANCY-SERUM NEGATIVE (NEGATIVE)
[2017-07-11 21:23] LABS: ALB/GLOB RATIO 0.6 (0.8-2.0); ALBUMIN 3.2 g/dl (3.5-5.0); ALKALINE PHOSPHATASE 102 U/L (33-138); ALT/SGPT 52 U/L (12-78); ANION GAP 8 mmol/L (0-20); AST/SGOT 53 U/L (10-40); BILIRUBIN,TOTAL 0.3 mg/dl (0-1.5); BLOOD UREA NITROGEN 9 mg/dl (6-24); CALCIUM 8.8 mg/dl (8.5-10.5); CARBON DIOXIDE-VENOUS 28 mmol/L (22-32); CHLORIDE 101 mmol/l (96-110); CREATININE 0.62 mg/dl (0.50-1.10); GLUCOSE 139 mg/dL (70-110); LIPASE 91 U/L (73-393); POTASSIUM 4.1 mmol/L (3.7-5.1); SODIUM 133 mmol/L (135-145); eGFR VALUE FOR BLACK >90 mL/Min
[2017-07-11] MEDS ORDERED: ZOFRAN ODT4 MG PO (23:17)
[2017-07-11] MEDS ORDERED: LOPERAMIDE2 M2 PO (23:17)
== END 2017-07-11 23:29 ==
LOC: EDMED → EDBD 20:10 → EDMED 20:10
PROVIDERS: Emergency Medicine
DX: R11.10 Vomiting, unspecified (principal); R19.7 Diarrhea, unspecified; I11.0 Hypertensive heart disease with heart failure; I50.9 Heart failure, unspecified; E11.9 Type 2 diabetes mellitus without complications; F32.9 Major depressive disorder, single episode, unspecified; F41.9 Anxiety disorder, unspecified; E66.9 Obesity, unspecified; F17.200 Nicotine dependence, unspecified, uncomplicated; Z90.49 Acquired absence of other specified parts of digestive tract; Z79.82 Long term (current) use of aspirin; Z79.899 Other long term (current) drug therapy
CPT/HCPCS: J2405; J7030; Q9967